=== PATIENT | male | born 1995 | race Caucasian/White ===

== ENCOUNTER → 2024-04-07 15:17 | Outpatient (CLI) | payer OTHER, SELFPAY ==
--- NOTE | 2024-04-07 15:20 | DI.US.S_ITS ---
PROCEDURE: US SCROTUM INDICATIONS: TESTICULAR PAIN LT TECHNIQUE: Real-time scanning was performed of the scrotum and testicles, with image documentation. Color and pulse Doppler interrogation was performed of both testicles. COMPARISON: None. FINDINGS: Right: Testicle is normal in size at 5.7 x 2.1 x 3.9 cm, and homogenous in echotexture. Epididymis is normal in overall size and morphology. No hydrocele or varicoceles. Overlying scrotal skin is normal in thickness. Left: Testicle is normal in size at 5.4 x 2.3 x 3.5 cm, and homogeneous in echotexture. Epididymis is normal in overall size and morphology. 2 mm epididymal head cyst. Varicocele present. No hydrocele. Overlying scrotal skin is normal in thickness. Doppler: Color and pulse Doppler demonstrate normal and symmetric arterial flow in both testicles. IMPRESSION: 2 mm left-sided epididymal head cyst. Left-sided varicocele. Dictated by: Taras Bird M.D. on 04/07/2024 at 17:06 Approved by: Taras Bird M.D. on 04/07/2024 at 17:07
== END ==
PROVIDERS: Referring Provider Student in an Organized Health Care Education/Training Program; Visit Provider Student in an Organized Health Care Education/Training Program
DX: N50.3 Cyst of epididymis (principal); I86.1 Scrotal varices; N50.819 Testicular pain, unspecified
CPT/HCPCS: 76870